=== PATIENT | female | born 1980 | race Caucasian/White ===

== ENCOUNTER 2017-06-09 13:04 | Inpatient (IN) | payer OTHER ==
[~2017-06-09] VITALS: Ht 165.1 cm; Wt 117.9 kg
[2017-06-09] MEDS ORDERED: NICOTINE POLACRILEX 4 MG GUM-PK OF TEN BC PRN (17:30)
[2017-06-09] MEDS ORDERED: LOPERAMIDE HCL 2 MG CAPSULE PO PRN ×2 (17:30)
[2017-06-09] MEDS ORDERED: diphenhydrAMINE 50 MG CAPSULE PO PRN (17:30)
[2017-06-09] MEDS ORDERED: ONDANSETRON 4 MG/2 ML VIAL IM PRN (17:30)
[2017-06-09] MEDS ORDERED: MAG HYDROX/AL HYDROX/SIMETH 30 ML LIQUID UDC PO PRN (17:30)
[2017-06-09] MEDS ORDERED: LORAZEPAM 1 MG TABLET PO PRN ×2 (17:30)
[2017-06-09] MEDS ORDERED: ACETAMINOPHEN 325 MG TABLET PO PRN (17:30)
[2017-06-09] MEDS ORDERED: THIAMINE HCL 200 MG/2 ML VIAL IM ONE (17:30)
[2017-06-09] MEDS ORDERED: LORAZEPAM 2 MG/1 ML VIAL IM PRN (17:30)
[2017-06-09] MEDS ORDERED: DICYCLOMINE HCL 20 MG TABLET PO PRN (17:30)
[2017-06-09] MEDS ORDERED: ONDANSETRON ODT 4 MG TAB.RAPDIS SL PRN (17:30)
[2017-06-09] MEDS ORDERED: CLONIDINE HCL 0.1 MG TABLET PO PRN (17:30)
[2017-06-09] MEDS ORDERED: NICOTINE 14 MG/24HR PATCH TD PRN (17:30)
[2017-06-09] MEDS ORDERED: MIRALAX 17 GM POWD.PACK PO PRN (17:30)
[2017-06-09 17:52] LABS: *URINE HCG, QUAL NEGATIVE (NEGATIVE)
[2017-06-09] MEDS: LORAZEPAM 1 MG TABLET PO SCH ×2 (18:06→21:15)
[2017-06-09] MEDS ORDERED: DIVALPROEX 500 MG TABLET.DR PO ONE (18:30)
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
--- NOTE | 2017-06-09 19:30 | NUR ---
Start of Shift Notes: Upon start of shift, pt lying in bed with eyes closed. During assessment, pt is AOx4. Pt reported anxiety and agitation. Per day shift nurse, admitting CIWA was 14. Plan of care explained to pt. Pt was passive with education. Pt remains on 1:1 for safety. Bed in lowest position. Side rails up x2. Call light functioning and within reach. All needs attended and met. Will continue to monitor.
[2017-06-09 20:00] VITALS: BP 124/73
[2017-06-09] MEDS: DIVALPROEX 500 MG TABLET.DR PO SCH (21:00)
[2017-06-09] MEDS ORDERED: QUETIAPINE FUMARATE 200 MG TABLET PO SCH (21:00)
--- NOTE | 2017-06-09 21:00 | NUR ---
Depakote refusal: Pt refused Depakote, stating "I'm not good with Depakote". Pt is not clear regarding any adverse reactions with Depakote and did not answer anymore questions. Depakote not administered. Will notify ordering Psychiatrist.
[2017-06-10] VITALS: BP 118/68
--- NOTE | 2017-06-10 07:03 | NUR ---
End of Shift Note: Pt currently in bed with eyes closed. Last CIWA was 8 at 1999. Pt was able to sleep for 11 hours. No PRNs given. Pt refused to take Depakote during shift. Will notify Psychiatrist. Bed in lowest position. Side rails up x2. All needs attended and met. Call light functioning and within reach. Will endorse to day shift nurse.
--- NOTE | 2017-06-10 07:15 | NUR ---
START OF SHIFT PATIENT IS A 37 YEAR OLD ADMITTED TO [facility] ON 06/09/17 TO DETOX FROM ALCOHOL AND METHAMPHETAMINE. PATIENT IS ASLEEP IN BED AT THIS TIME, BREATHING EVEN AND UNLABORED WITH BOTH SIDE RAILS UP AND SITTER AT BEDSIDE FOR SAFETY. PPD TEST TO BE ADMINISTERED TODAY. PATIENT IS ON A 5 DAY ATIVAN TAPER AND THIS IS DAY 2 . PATIENT SLEPT FOR 11 HORS LAST NIGHT AND LAST CIWA 6 @ 2000. NO PRN MEDS REQUIRED OR REQUESTED ON PM SHIFT. WILL CONTINUE TO FOLLOW MD PLAN OF CARE.
[2017-06-10 07:52] LABS: *AMPHETAMINE, URINE POSITIVE (NEGATIVE); *BARBITURATE, URINE NEGATIVE (NEGATIVE); *CANNABINOID, URINE NEGATIVE (NEGATIVE); *COCCAINE, URINE NEGATIVE (NEGATIVE); *OPIATE, URINE NEGATIVE (NEGATIVE); *PHENCYCLIDINE SCREEN,URINE NEGATIVE (NEGATIVE)
[2017-06-10 08:00] VITALS: BP 106/51
[2017-06-10] MEDS ORDERED: TUBERCULIN,PURIF.PROT.DERIV. 5 TU/0.1 ML TEST ID ONE (09:00)
[2017-06-10] MEDS: DIVALPROEX 500 MG TABLET.DR PO SCH ×2 (09:00→14:13)
--- NOTE | 2017-06-10 09:00 | NUR ---
DEPAKOTE REFUSED PATIENT REFUSED DEPAKOTE 500MG PO STATING WE NEED TO GET HER MEDICAL HISTORY AND SEE WHAT MEDS SHE REALLY IS ON, ADOLESCENT PSYCHIATRIST FAXED REQUEST TO [facility] FOR RECORDS
[2017-06-10] MEDS: MULTIVITAMINS,THERAPEUTIC TABLET PO SCH (09:07)
[2017-06-10] MEDS: LORAZEPAM 1 MG TABLET PO SCH ×3 (09:07→20:46)
[2017-06-10] MEDS: FOLIC ACID 1 MG TABLET PO SCH (09:07)
[2017-06-10] MEDS: THIAMINE HCL 100 MG TABLET PO SCH (09:07)
--- NOTE | 2017-06-10 09:08 | NUR ---
PPD PPD PLACED ON PATIENTS RIGHT FORE ARM REASSESS IN 48 HRS
[2017-06-10 12:00] VITALS: BP 96/40
--- NOTE | 2017-06-10 14:30 | NUR ---
DEPAKOTE REFUSAL PATIENT REFUSED DEPAKOTE 500MG PO
[2017-06-10 16:00] VITALS: BP 105/52
[2017-06-10 17:38] LABS: BASOPHILS # (AUTO) 0.1 K/uL (0.0-8.0); BASOPHILS % (AUTO) 0.9 % (0.0-2.0); EOSINOPHILS # (AUTO) 0.9 K/uL (0.0-0.7); EOSINOPHILS % (AUTO) 14.6 % (0.0-7.0); HEMATOCRIT 40.4 % (31.2-41.9); HEMOGLOBIN 13.5 g/dL (10.9-14.3); MEAN CORPUSCULAR HEMOGLOBIN 30.5 uug (24.7-32.8); MEAN CORPUSCULAR HGB CONC 33 g/dL (32.3-35.6); MEAN CORPUSCULAR VOLUME 91.3 fL (75.5-95.3); MONOCYTES # (AUTO) 0.3 K/uL (2.0-10.0); MONOCYTES % (AUTO) 5.3 % (0.0-11.0); NEUTROPHILS % (AUTO) 47.2 % (38.5-71.5); PLATELET COUNT (AUTO) 218 K/uL (179-408); RED BLOOD CELL COUNT(AUTO) 4.42 MIL/uL (3.63-4.92); WHITE BLOOD COUNT (AUTO) 6.3 K/uL (3.8-11.8)
[2017-06-10 17:40] LABS: ETHANOL < 3 MG/DL (0-0)
[2017-06-10 17:48] LABS: ALANINE AMINOTRANSFERASE 63 U/L (14-59); ALKALINE PHOSPHATASE 93 U/L (50-136); AMYLASE 50 U/L (25-115); ASPARTATE AMINOTRANSFERASE 35 U/L (15-37); BILIRUBIN,TOTAL 0.2 mg/dL (0.2-1.0); CARBON DIOXIDE 26 mmol/L (21-32); CHLORIDE 106 mmol/L (98-107); CREATININE 1.2 mg/dL (0.6-1.3); GLUCOSE 126 mg/dL (74-106); MAGNESIUM 1.9 mg/dL (1.8-2.4); UREA NITROGEN, BLOOD 24 mg/dL (7-18)
--- NOTE | 2017-06-10 18:44 | NUR ---
END OF SHIFT : PATIENT IS A 37 YEAR OLD ADMITTED 06/09/17 FOR DETOXIFICATION FROM ALCOHOL AND METH. PATIENT HAS BEEN RESTING IN BED MOST OF THE DAY. SHE HAS BEEN UNCOOPERATIVE WITH TAKING HER DEPOKATE STATING " YOU NEED TO FIND OUT WHAT I TAKE, IM NOT TAKING THAT SHIT , YOU DON'T EVEN KNOW". ASSIGNMENT AGENT HAS TRIED TO GET MEDICAL RECORDS FROM [facility] WHERE PATIENT WAS PREVIOUSLY. PATIENT IS ON A 5 DAY ATIVAN TAPER AND THIS IS DAY 2. NO PRN MEDS GIVEN ON THIS SHIFT. PATIENT HAS A SITTER AT BEDSIDE FOR SAFETY. DR MARIE ASSESSED PATIENT AND ORDERING SEROQUIL 300MG PO HS . PPD PLACED ON RIGHT FOREARM. LAST CIWA 12 @ 1600. FLUID INTAKE THIS SHIFT 1500 ML, 4 VOIDS AND 0 BM. WILL CONTINUE TO FOLLOW MD PLAN OF CARE.
--- NOTE | 2017-06-10 19:30 | NUR ---
START OF SHIFT Pt is a 37 y/o female admitted on 06/09/17 for ETOH and meth withdrawal. Pt started a 4 day Ativan taper on 06/10/17, tolerating well. Pt is on a 1:1 for nurse safety. Per day shift nurse, last CIWA 12 and no PRNs administered. Upon assessment pt presents with irritability, anxiety, agitation, headache 5/10, flat affect, dysphoria and anhedonia. Pt is easily agitated. Pt appears disheveled, room is unkempt and pt is odorous. Pt reports having dysuria and polyuria, denies hematuria. Safety measures in place. Call light within reach. Medications due. Will continue to monitor.
[2017-06-10 20:00] VITALS: BP 122/83
[2017-06-10] MEDS: GABAPENTIN 300 MG CAPSULE PO SCH (20:45)
[2017-06-10] MEDS: QUETIAPINE FUMARATE 200 MG TABLET PO SCH (20:46)
[2017-06-10] MEDS: IBUPROFEN 400 MG TABLET PO PRN (20:46)
--- NOTE | 2017-06-10 20:46 | NUR ---
PRN MOTRIN ADMINISTRATION Pt reports headache 5/10, pt is irritable. Safety measures in place. Call light within reach. Will continue to monitor.
--- NOTE | 2017-06-10 21:46 | NUR ---
PRN MOTRIN REASSESSMENT Pt laying in bed with eyes closed. Respirations even and unlabored. Safety measures in place. Call light within reach. Will continue to monitor.
--- NOTE | 2017-06-11 | NUR ---
CIWA DEFERRED AND VITALS REFUSED Pt laying in bed with eyes closed, CIWA deferred, to be assessed when pt is awake. Vitals refused. Respirations even and unlabored. Safety measures in place. Call light within reach. Will continue to monitor.
--- NOTE | 2017-06-11 07:06 | NUR ---
END OF SHIFT Pt is a 37 y/o female admitted on 06/09/17 for ETOH and meth withdrawal. Pt started a 4 day Ativan taper on 06/10/17, tolerating well. Pt is on a 1:1 for nurse safety. Pt presented with irritability, anxiety, agitation, headache 5/10, flat affect, dysphoria and anhedonia. Pt was easily agitated. Pt appeared disheveled, room was unkempt and pt was odorous. Pt reported having dysuria and polyuria, denies hematuria. Scheduled medications and PRN Motrin administered, effective in S/S of withdrawal as verbalized by pt. Last CIWA 17. Pt slept 10 hours. Intake 200 ml, void x 1, stool x 1. Safety measures in place. Call light within reach. 1:1 sitter at bedside. Pts needs have been met. Endorsed to day shift nurse.
--- NOTE | 2017-06-11 07:45 | NUR ---
START OF SHIFT Endorse rcvd from ongoing nurse, client is sitting in bed, she avoids eye contact, a/o x 3, she presents with depressed mood, flat affect, tremors felt not observed, and moist skin. She reports decrease appetite, restless legs, feelings of despair, and fatigue. Client is on a 1:1 sitter for safety precautions. Client denies any SI/HI. Encourage client to attend group therapy for skills to maintain sober. Encourage client to increase PO fluid as tolerated to maintain rehydration and facilitate detox. Client had an uneventful night, client slept 7 hrs. Last CIWA 17 @ 1999. Seizure precautions rendered.
[2017-06-11 08:00] VITALS: BP 107/58
[2017-06-11] MEDS: GABAPENTIN 300 MG CAPSULE PO SCH ×2 (09:17→20:35)
[2017-06-11] MEDS: THIAMINE HCL 100 MG TABLET PO SCH (09:17)
[2017-06-11] MEDS: MULTIVITAMINS,THERAPEUTIC TABLET PO SCH (09:17)
[2017-06-11] MEDS: LORAZEPAM 1 MG TABLET PO SCH ×3 (09:17→17:40)
[2017-06-11] MEDS: FOLIC ACID 1 MG TABLET PO SCH (09:17)
[2017-06-11 12:00] VITALS: BP 111/62
--- NOTE | 2017-06-11 16:33 | NUR ---
therapist prompted client to come to group.
[2017-06-11 16:55] VITALS: BP 114/60
--- NOTE | 2017-06-11 19:30 | NUR ---
START OF SHIFT Pt is a 37 y/o female admitted on 06/09/17 for ETOH and meth withdrawal. Pt started a 4 day Ativan taper on 06/10/17, tolerating well. Pt is on a 1:1 for safety. Per day shift nurse, last CIWA 13 and no PRNs administered. Upon assessment pt presents with irritability, increased HR, anxiety, fatigue, agitation, flat affect, dysphoria and anhedonia. Pt is easily agitated. Pt appears disheveled, room is unkempt and pt is odorous. Safety measures in place. Call light within reach. Medications due. Will continue to monitor.
--- NOTE | 2017-06-11 19:35 | NUR ---
END OF SHIFT Endorsed client to incoming nurse, client is a/o x 4, she remained in her room, prefers dim light, she continues to present with anxious mood, flat affect, restless legs, and fatigue. She continues to be on 1:1 for safety precautions. Adequate PO fluid intake 1500mL, void x 2, stool x 1. Client not compliant with group therapy d/t withdrawal symptoms. Last CIWA 13 @ 1600. . Call light within reach.
[2017-06-11 20:00] VITALS: BP 129/82
[2017-06-11] MEDS: QUETIAPINE FUMARATE 200 MG TABLET PO SCH (20:35)
[2017-06-11] MEDS ORDERED: LORAZEPAM 1 MG TABLET PO SCH (21:00)
--- NOTE | 2017-06-11 21:45 | NUR ---
PRN ZYPREXA SL RE-ASSESSMENT PATIENT LESS ANXIOUS AND LESS RESTLESS . ZYPREXA HELPFUL AND EFFECTIVE. WILL CONTINUE TO MONITOR.
--- NOTE | 2017-06-12 | NUR ---
CIWA DEFERRED AND VITALS REFUSED Pt laying in bed with eyes closed, CIWA deferred, to be assessed when pt is awake per orders. Vitals refused. Safety measures in place. Call light within reach. Will continue to monitor.
--- NOTE | 2017-06-12 07:02 | NUR ---
END OF SHIFT Pt is a 37 y/o female admitted on 06/09/17 for ETOH and meth withdrawal. Pt started a 4 day Ativan taper on 06/10/17, tolerating well. Pt is on a 1:1 for safety. Pt presented with irritability, increased HR, anxiety, fatigue, agitation, flat affect, dysphoria and anhedonia. Pt is easily agitated. Pt appears disheveled, room is unkempt and pt is odorous. Scheduled medications administered, effective in S/S of withdrawal as verbalized by pt. No PRNs administered. Last CIWA 13. Pt slept 10 hours. Intake 1186 ml, void x 2, stool x 0. Safety measures in place. Call light within reach. Pts needs have been met. Endorsed to day shift nurse.
--- NOTE | 2017-06-12 07:45 | NUR ---
START OF SHIFT Endorse rcvd from ongoing nurse, client is lying in bed, she is a/o to name and situation, client presents with irritable mood, flat affect, skin moist, fine tremors, she stated, "This room is noisy and the TV is very loud), TV was on lowest volume, decreased stimuli provided. Client request to dim the light in room, she reports fatigue, nausea, generalized body aches, and sweats. Client is on 1:1 for safety for the duration of her stay at [facility]. W/C is at bedside, client is able to ambulate with steady gait to the bathroom. PT evaluation pending for gait; DME recommendations. Encourage client to increase PO fluid to facilitate detox. Encourage client to participate in ADL and to attend group therapy for skills to maintain sober. Client is on third of modified 5 day Ativan taper, tolerating well. Last CIWA 13 @ 1999. Client slept 10 hrs. Seizure precautions rendered. Call light within reach.
[2017-06-12 08:06] LABS: HEPATITIS B SURFACE AG Negative (Negative)
[2017-06-12 08:45] VITALS: BP 127/82
--- NOTE | 2017-06-12 08:45 | NUR ---
Client gets agitated easily,while taking vital signs, she told nurse, "You better get it right the first time.", then latter on she scream, "get it off bitch, it's killing my arm." nurse removed it from L arm, and place blood pressure cuff on L forearm, client was compliant at this time.
[2017-06-12] MEDS: GABAPENTIN 300 MG CAPSULE PO SCH ×2 (09:12→21:07)
[2017-06-12] MEDS: THIAMINE HCL 100 MG TABLET PO SCH (09:12)
[2017-06-12] MEDS: FOLIC ACID 1 MG TABLET PO SCH (09:12)
[2017-06-12] MEDS: MULTIVITAMINS,THERAPEUTIC TABLET PO SCH (09:12)
[2017-06-12] MEDS: LORAZEPAM 1 MG TABLET PO SCH ×3 (09:12→21:07)
--- NOTE | 2017-06-12 09:15 | NUR ---
Client was mumbling something to nurse when medications were been administered, nurse asked client to repeat her request and client opened her eyes, and screamed, "I asked you to pour some water on my cup, bitch, why you make me repeat myself more than 3 times!" Primary nurse gave client a cup with water and client said, "Ok, thanks, now go, let me sleep and don't wake me up, I'm tired."
--- NOTE | 2017-06-12 10:45 | NUR ---
Client refused PT gait evaluation/ DME recommendation. MD and CN notified.
[2017-06-12 12:00] VITALS: BP 131/84
--- NOTE | 2017-06-12 12:45 | NUR ---
Client with steady gait, but refused to ambulate to shower, stating "Why can I use that shit." client was referring to the W/C. She grabbed and sat on it and said, "Ok, I'm ready let's go." tech wheeled client to showers. Tech reported client was able to take a shower with no difficulty.
[2017-06-12 16:53] VITALS: BP 98/58
--- NOTE | 2017-06-12 19:11 | NUR ---
END OF SHIFT Endorsed client to incoming nurse, client is a/o to name place and situation, she needs encouragement to attend group therapy, client remains isolated in her room due to withdrawal symptoms, she continues to present with anxious mood, flat affect, restless legs, fine tremors, and nausea. Client gets agitated easily. She consumed ~75 0% of meals. Client is on 1:1 for safety for the duration of her stay at [facility]. Adequate PO fluid intake 1200mL, void x 2, stool x 1. Last CIWA 13 @ 1600. Call light within reach.
[2017-06-12 20:00] VITALS: BP 105/61
--- NOTE | 2017-06-12 20:00 | NUR ---
Start of Shift Patient lying on bed, with 1:1 sitter at bedside. Pt with labile mood, AAOx4 and noted to be anxious and easily agitated. No SOB noted. Pt with intermitten racing thoughts and curses, lizet when vital signs are taken. With fine tremors observed. Pt complains of being sensitive to light. Fall, universal, seizure and safety prec in place. Call light within reach. Latest CIWA=12. Will continue to monitor.
[2017-06-12] MEDS: QUETIAPINE FUMARATE 200 MG TABLET PO SCH (21:07)
[2017-06-13] VITALS: BP 102/63
--- NOTE | 2017-06-13 00:51 | NUR ---
RN note PRN Benadryl Pt c/o inability to sleep. Administered Benadryl 50 mg PO PRN as ordered. Will reassess.
--- NOTE | 2017-06-13 01:53 | NUR ---
RN note reassess Pt asleep on bed, with no facial grimacing nor SOB noted.
[2017-06-13 04:00] VITALS: BP 107/65
--- NOTE | 2017-06-13 07:17 | NUR ---
End of Shift Patient lying on bed, with 1:1 sitter at bedside. Pt continues to be easily agitated and with labile mood. Pt easily snaps and curses. No SOB noted. Pt with intermittent racing thoughts and noted to be talking to herself at times. With fine tremors observed. Pt complains of being sensitive to light. Pt also continues to be unkempt, disheveled and untidy with her room. Fall, universal, seizure and safety prec in place. Call light within reach. Latest CIWA=12, slept for 8 hours. Endorsed to AM shift nurse for continuity of care.
--- NOTE | 2017-06-13 07:20 | NUR ---
START OF SHIFT : PATIENT ASLEEP IN BED AT THIS TIME WITH SITTER AT BEDSIDE FOR SAFETY. BREATHING IS EVEN AND UNLABORED, SIDE RAILS UP X 2. PRN MEDS GIVEN ON PM SHIFT : BENADRYL 50MG PO. PATIENT SLEPT FOR 8 HOURS WITH REPORT GIVEN THAT WHEN PATIENT AWAKE SHE IS VERBALLY ABUSIVE TO STAFF. LAST CIWA 12 , WILL CONTINUE TO FOLLOW MD ORDERS.
[2017-06-13 08:00] VITALS: BP 119/64
[2017-06-13] MEDS: THIAMINE HCL 100 MG TABLET PO SCH (08:57)
[2017-06-13] MEDS: GABAPENTIN 300 MG CAPSULE PO SCH ×2 (08:57→20:13)
[2017-06-13] MEDS: LORAZEPAM 1 MG TABLET PO SCH ×2 (08:57→20:13)
[2017-06-13] MEDS: FOLIC ACID 1 MG TABLET PO SCH (08:57)
[2017-06-13] MEDS: MULTIVITAMINS,THERAPEUTIC TABLET PO SCH (08:57)
--- NOTE | 2017-06-13 10:06 | NUR ---
Therapist met with client and encouraged her to attend group and start to take part in the process of treatment. Client said she will attempt.
--- NOTE | 2017-06-13 10:30 | NUR ---
PATIENT TOOK SHOWER AND THEN REFUSED TO GO TO GROUP SAYING SHE WAS FEELING DIZZY AND NEEDED TO LIE DOWN, WILL ENCOURAGE TO JOIN AFTERNOON GROUP
[2017-06-13 12:00] VITALS: BP 113/69
[2017-06-13 16:00] VITALS: BP 121/79
--- NOTE | 2017-06-13 18:48 | NUR ---
END OF SHIFT : PATIENT CONTINUES ON HER ATIVAN TAPER, NO PRN'S REQUESTED OR REQUIRED THIS SHIFT. PATIENT CONTINUES TO BE EMOTIONALLY VOLATILE AT TIMES BUT NOT VERBALLY ABUSIVE TO STAFF ON THIS SHIFT. PPD ASSESSED AND ZERO INDURATION NOTED. PATIENT TOOK A SHOWER TODAY BUT REFUSED TO ATTEND GROUP SAYING SHE FELT " DIZZY " AFTER HER SHOWER, CONTINUED TO ENCOURAGE HER TO ATTEND AFTERNOON GROUP BUT PATIENT DECLINED SAYING " I'M TIRED, I WANT TO SLEEP ". FLUID INTAKE THIS SHIFT 2300ML,4 VOIDS AND [address] BM[address] S[address]ET[address] MEASURES IN PL[address] WITH 1:1 SITTER IN ROOM FOR SAFETY. LAST CIWA 10 @ 1600. CONTINUE MD PLAN OF CARE.
[2017-06-13 20:00] VITALS: BP 123/58
--- NOTE | 2017-06-13 20:00 | NUR ---
START OF SHIFT NOTE RECEIVED REPORT FROM DAY SHIFT NURSE. PATIENT IS A 37 YEAR OLD FEMALE ADMITTED FOR ETOH WITHDRAWAL . PATIENT IS ON THE 4TH DAY OF HER 4 DAY MODIFIED ATIVAN TAPER, TOLERATED WELL AND NO ADVERSE REACTION. ON 1:1 FOR SAFETY. PATIENT REFUSED TO GO TO GROUPS. PATIENT DID NOT REQUIRE PRN MEDICATION. LAST CIWA 10. RECEIVED PATIENT IN THE ROOM, LYING IN THE BED WITH 1:1. PATIENT DISHEVELED, ANXIOUS, IRRITABLE, ANGRY, AGITATED, RESTLESS AND DEMANDING. SAFETY MEASURES IN PLACE. CALL LIGHT IN REACH. WILL CONTINUE TO MONITOR.
[2017-06-13] MEDS: QUETIAPINE FUMARATE 200 MG TABLET PO SCH (20:13)
[2017-06-13] MEDS ORDERED: OLANZAPINE ZYDIS 5 MG TAB.RAPDIS PO ONE (21:15)
--- NOTE | 2017-06-13 21:15 | NUR ---
Behavioral Note and Psychiatrist Communication: Pt seen in room, making verbal attacks to staff. Pt stated "I am having flashbacks, I keep seeing bodies around me. The medications you gave me don't work and I will flip out if you don't do anything". Attempted to redirect pt with negative results. Pt was making threats to primary nurse. Explained to pt that MD and Psychiatrist will be notified. Pt verbalized understanding. Dr. Robb made aware. New order for 10mg Zyprexa Zydis SL for anxiety/agitation. Orders noted and carried out. Pt remains on 1:1 observation. Will continue to monitor.
--- NOTE | 2017-06-13 21:45 | NUR ---
PRN ZYPREXA SL RE-ASSESSMENT PATIENT LESS ANXIOUS AND LESS RESTLESS . ZYPREXA HELPFUL AND EFFECTIVE. WILL CONTINUE TO MONITOR.
--- NOTE | 2017-06-14 | NUR ---
CIWA DEFERRED PATIENT SLEEPING. VS REFUSED. RESPIRATION EVEN AND UNLABORED. SAFETY MEASURES IN PLACE. CALL LIGHT IN REACH. WILL CONTINUE TO MONITOR.
--- NOTE | 2017-06-14 04:00 | NUR ---
CIWA DEFERRED PATIENT SLEEPING. VS REFUSED. RESPIRATION EVEN AND UNLABORED. SAFETY MEASURES IN PLACE. CALL LIGHT IN REACH. WILL CONTINUE TO MONITOR.
--- NOTE | 2017-06-14 06:55 | NUR ---
START OF SHIFT NOTE PATIENT SLEPT 7 HOURS. FLUID INTAKE 2,236ML. VOIDED X 3 . BM X 1. MONITORED PATIENT THROUGHOUT SHIFT. MEDICATION GIVEN ORDERED, TOLERATED WELL AND NO ADVERSE REACTION. CONTINUE ON 1:1 FOR SAFETY. PATIENT WAS ANXIOUS, IRRITABLE, ANGRY, AGITATED, RESTLESS AND DEMANDING DURING SHIFT. MEDICATION GIVEN ORDERED. AT 2114, PATIENT WAS C/O OF HAVING FLASHBACKS AND STATES MEDICATION THAT WAS GIVEN TO HER DID NOT WORK. OBTAINED NEW ORDER OF ZYPREXA FROM DR. MARIE. PRN ZYPREXA GIVEN, HELPFUL AND EFFECTIVE. SAFETY MEASURES IN PLACE. CALL LIGHT IN REACH. WILL CONTINUE TO MONITOR. LAST CI 7. Addendum: 06/14/17 at 0701 by CAITLYN JUDGE LVN ERROR:END OF SHIFT NOTE
--- NOTE | 2017-06-14 07:22 | NUR ---
START OF SHIFT PATIENT ADMITTED TO [facility] ON 06/09/17 FOR WITHDRAWAL FROM ALCOHOL AND METHAMPHETAMINE. PATIENT IS ON A 1:1 FOR SAFETY MEASURES. PATIENT REQUIRED A ONE TIME ORDER ON PM SHIFT OF ZYPREXA 10MG SL FOR PATIENTS VERBAL REPORT OF HALLUCINATIONS AND AGITATION. PATIENT SLEPT FOR 7 HOURS. THIS IS PATIENTS LAST DAY ON 5 DAY ATIVAN TAPER. UPON ENTERING PATIENT ROOM PATIENT IS ASLEEP IN BED, BREATHING EVEN AND UNLABORED, BED WITH SIDE RAILS UP X 2 WITH SITTER AT BEDSIDE. PATIENT IS ODOROUS AND UNKEMPT AND ROOM SMELLS OF FLATULENCE . LAST CIWA 7. WILL FOLLOW MD ORDER OF CARE.
[2017-06-14 08:00] VITALS: BP 94/54
[2017-06-14] MEDS: GABAPENTIN 300 MG CAPSULE PO SCH ×2 (08:25→20:21)
[2017-06-14] MEDS: MULTIVITAMINS,THERAPEUTIC TABLET PO SCH (08:26)
[2017-06-14] MEDS: THIAMINE HCL 100 MG TABLET PO SCH (08:26)
[2017-06-14] MEDS: FOLIC ACID 1 MG TABLET PO SCH (08:26)
[2017-06-14] MEDS ORDERED: LORAZEPAM 1 MG TABLET PO SCH (09:00)
[2017-06-14] MEDS ORDERED: OLANZAPINE ZYDIS 5 MG TAB.RAPDIS PO PRN (11:45)
[2017-06-14 12:00] VITALS: BP 121/73
[2017-06-14] MEDS ORDERED: CLON0.1T14 PO (15:28)
[2017-06-14] MEDS ORDERED: QUET200T PO (15:28)
[2017-06-14] MEDS ORDERED: DIPH50CA37 PO (15:28)
[2017-06-14] MEDS ORDERED: GABA-534 PO (15:28)
[2017-06-14 16:00] VITALS: BP 112/61
--- NOTE | 2017-06-14 18:48 | NUR ---
END OF SHIFT : PATIENT WAS ADMITTED TO [facility] ON 06/09/17 FOR ALCOHOL DETOXIFICATION AND WILL BE DISCHARGED TOMORROW 06/15/17. TODAY SHE COMPLETED HER 5 DAY MODIFIED ATIVAN TAPER. NO PRN MEDICATION REQUESTED OR REQUIRED ON THIS SHIFT. PATIENT IS UNKEMPT AND ODOROUS AND EXTREMELY UNTIDY DROPPING FOOD AND WRAPPERS ON FLOOR OF ROOM. PATIENT HAS BEEN ASLEEP IN BED MOST OF THE DAY, SHE GOT UPSET WITH THE [employer] TODAY WHEN THEY TOLD HER WHERE SHE WOULD BE DISCHARGED TO TOMORROW DEMANDING THEY TALK TO HER " PEOPLE " AND SORT IT OUT. 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 PSYCHIATRIST ORDERED A PRN ZYPREXA 10MG SL Q 12 HOURS FOR ANY AGITATION THAT MAY OCCUR. NO PRN MEDICATIONS GIVEN OR REQUESTED ON THIS SHIFT. PATIENT HAD A FLUID INTAKE OF 2000 ML ,3 VOIDS AND 1BM. THERE HAS BEEN A SITTER IN HER ROOM ALL SHIFT FOR SAFETY. PATIENT TOOK A SHOWER AT 1800 TODAY. LAST WA 8 @1600. WILL CONTINUE TO FOLLOW MD PLAN OF CARE.
--- NOTE | 2017-06-14 19:30 | NUR ---
START OF SHIFT Pt is a 37 y/o female admitted for ETOH and Meth withdrawals.Pt received sitting in bed with sitter on her bed side,appeared to anxious on approach;pt c/o having anxiety and flashbacks and wants to take her medications early.Pt is labile and unpredictable,tends to get easily agitated during conversation.Pt is focused on taking Ativan;she was informed that her Ativan taper is completed and she is scheduled for discharge in the morning,she became upset stated that "they have not found a place for me yet".Emotional support and positive coping/relaxation skills implemented.All safety measures in place,with call light within reach and sitter at bedside.Will continue to monitor for safety and medicate per orders.
[2017-06-14 20:00] VITALS: BP 140/76
[2017-06-14] MEDS: IBUPROFEN 400 MG TABLET PO PRN (20:21)
[2017-06-14] MEDS: QUETIAPINE FUMARATE 200 MG TABLET PO SCH (20:21)
--- NOTE | 2017-06-14 20:21 | NUR ---
PRN MOTRIN GIVEN FOR C/O HEADACHE.PAIN LEVEL IS 5/10.WILL MONITOR FOR EFFECTIVENESS.
--- NOTE | 2017-06-14 21:20 | NUR ---
PRN F/U PT IS CALM AND IN DEEP SLEEP,NO S/S OF DISTRESS NOTED.WILL CONTINUE TO MONITOR.
--- NOTE | 2017-06-15 | NUR ---
V/S REFUSED / CIWA DEFERRED. PATIENT IS SLEEPING COMFORTABLY IN BED. V/S REFUSED. RESPIRATION EVEN AND NONLABORED. ALL SAFETY MEASURES IN PLACE. CALL LIGHT WITHIN REACH. SITTER IS AT BEDSIDE.WILL BE MONITORED FOR SAFETY.
--- NOTE | 2017-06-15 06:44 | NUR ---
END OF SHIFT Pt is a 37 y/o female admitted for ETOH and Meth withdrawals.In the beginning of the shift,pt was very anxious and focused on her medications and discharge plans.She calmed down after HS medications. Emotional support and positive coping techniques were provided with good effect.Last CIWA was 7 at 2000,midnight and 0400 CIWA deferred due to pt being asleep.PRN Motrin was given x 1 for headache with good effect.Pt slept 9 hours;fluid intake was 2020 mls;voided x 3 and had a B/M x 1.All safety measures in place,with call light within reach and sitter at bedside.Will continue to monitor for safety.
--- NOTE | 2017-06-15 07:15 | NUR ---
START OF SHIFT PATIENT ADMITTED ON 06/09/17 FOR WITHDRAWAL FROM ALCOHOL AND METHAMPHETAMINES. PATIENT HAS FINISHED HER ATIVAN TAPER AND WILL BE DISCHARGED THIS AFTERNOON, PLACEMENT PENDING. PATIENT REQUIRED PRN MOTRIN ON PM SHIFT FOR HEADACHE. LAST CIWA 7 @ 1999. SITTER AT BEDSIDE FOR SAFETY MEASURES, WILL CONTINUE TO FOLLOW MD PLAN OF CARE.
[2017-06-15 08:00] VITALS: BP 104/61
[2017-06-15] MEDS: GABAPENTIN 300 MG CAPSULE PO SCH (08:54)
[2017-06-15] MEDS: FOLIC ACID 1 MG TABLET PO SCH (08:54)
[2017-06-15] MEDS: THIAMINE HCL 100 MG TABLET PO SCH (08:54)
[2017-06-15] MEDS: MULTIVITAMINS,THERAPEUTIC TABLET PO SCH (08:54)
[2017-06-15 12:00] VITALS: BP 103/56
[2017-06-15] MEDS: IBUPROFEN 400 MG TABLET PO PRN ×2 (13:26→18:22)
--- NOTE | 2017-06-15 13:26 | NUR ---
PRN MOTRIN MOTRIN 400MG PO GIVEN FOR C/O HEADACHE 08/27 WILL REASSESS
--- NOTE | 2017-06-15 14:26 | NUR ---
MOTRIN REASSESS PATIENT STATES MOTRIN HAS HELPED AND HER HEADACHE IS GONE, CONTINUE TO MONITOR
[2017-06-15 16:00] VITALS: BP 132/71
--- NOTE | 2017-06-15 16:00 | NUR ---
PRN ZYPREXA/ AGITATION 10MG SL ZYPREXA GIVEN, PATIENT EXTREMELY AGITATED , YELLING AT [employer]OOF FOR[employer] ROSA ISELA " YOU FUCKING BITCH " PATIENT DEMANDING TO GO TO A TREATMENT CENTER THAT SHE APPROVES OFF. PATIENT WAS IN HALLWAY SAYING " YOU WANT TO SEE ME FUCKING LOSE IT, I CAN EITHER TOTALLY LOSE IT OR CALM THE FUCK DOWN, LET ME GO HAVE A CIGARETTE NOW ". ROOF FOREMAN NEEDS PATIENT ON FLOOR TO SORT OUT TREATMENT ARRANGEMENT FOR TODAY. WILL CONTINUE TO OFFER ASSISTANCE TO ALL INVOLVED.
--- NOTE | 2017-06-15 17:00 | NUR ---
PRN REASSESS ZYPREXA 10MG SL EFFECTIVE, PATIENT CALMED DOWN CIWA REDUCED FROM 10-7. AWAITING TRANSPORT FOR PATIENT TO REHAB.
--- NOTE | 2017-06-15 18:22 | NUR ---
PRN MOTRIN 400MG MOTRIN PO GIVEN FOR HEADACHE 5/10, WILL REASSESS
--- NOTE | 2017-06-15 18:48 | NUR ---
END OF SHIFT: PATIENT ADMITTED ON 06/09/17 FOR DETOX FROM ALCOHOL, SHE FINISHED HER SUBUTEX TAPER AND IS READY TO BE DISCHARGED TONIGHT. PATIENT HAS ISOLATED IN HER ROOM ALL DAY, GETTING AGITATED AT TIMES WITH THE WIPER BLENDER WHO WAS TRYING TO FIND A PLACEMENT FOR HER IN A TREATMENT CENTER, BEING VERBALLY ABUSIVE AND AGGRESSIVE. PATIENT CALMED DOWN AFTER TAKING ZYPREXA 10MG PO , PRN MOTRIN GIVEN FOR HEADACHE. PATIENT HAD A FLUID INTAKE OF 2900ML, 3 VOIDS AND 1 BM TODAY. LAST CIWA WAS 7 @ 1700. AWAITING TRANSPORT TO ARRIVE TO TAKE PATIENT TO [facility]. ALL PAPERWORK SIGNED AND DATED, ALL BELONGINGS AND PRESCRIPTIONS GIVEN TO PATIENT. PATIENT HAS NO SI/HI AT THIS TIME. VITAL SIGNS STABLE.
--- NOTE | 2017-06-15 19:55 | NUR ---
Discharge Note: Pt left the unit in stable condition. All pt belongings returned. Discharge paperwork and education was given. Pt was escorted outside to be picked up by private transportation to [facility].
== END 2017-06-15 19:55 | disposition other institution (70) | DRG 895 ==
LOC: SRC 16:26
PROVIDERS: ADMIT Internal Medicine; ATTEND Internal Medicine
PROC: HZ2ZZZZ Detoxification Services for Substance Abuse Treatment (ICD-10-PCS; principal; 2017-06-09)
PROC: HZ31ZZZ Individual Counseling for Substance Abuse Treatment, Behavioral (ICD-10-PCS; 2017-06-11)
DX: F10.232 Alcohol dependence with withdrawal with perceptual disturbance (principal); Z68.41 Body mass index [BMI] 40.0-44.9, adult; K70.9 Alcoholic liver disease, unspecified; F15.23 Other stimulant dependence with withdrawal; Y90.9 Presence of alcohol in blood, level not specified; Z59.1 Inadequate housing; F17.210 Nicotine dependence, cigarettes, uncomplicated; Z90.49 Acquired absence of other specified parts of digestive tract; Z81.8 Family history of other mental and behavioral disorders; Z79.899 Other long term (current) drug therapy; E66.9 Obesity, unspecified; F43.10 Post-traumatic stress disorder, unspecified; E86.0 Dehydration; R26.81 Unsteadiness on feet; R73.9 Hyperglycemia, unspecified; F31.9 Bipolar disorder, unspecified
CPT/HCPCS: 36415; 70030-TC; 80307; 80324; 83735; 84703; 85025; 86580; 86592; 86705; 86803; 87340; 87806; A4663; G0480; Q0163